=== PATIENT | male | born 1950 | race Caucasian/White ===

== ENCOUNTER 2018-06-06 12:04 | Observation (INO) ==
--- NOTE | 2018-06-06 12:12 | Emergency Department Note ---
Disposition Clinical Impression: Near syncope, Elevated troponin Disposition: Admitted As Inpatient Condition: Good Forms: ED Satisfaction Letter, Work/School Release General Adult HPI - General Chief complaint: ED General Medical Stated complaint: passed out Time Seen by Provider: 06/06/18 12:09 Source: patient Mode of arrival: ambulatory Limitations: no limitations Nursing Notes Reviewed: Yes Vital Signs Reviewed: Yes - History of Present Illness HPI Narrative: Patient was at a store and got unsteady on his feet fell and hit his head on the counter. He tells me he is to fall quite a bit and then over the last 6 months he has only following a couple times. He has no complaints at present. He denies any injury from the fall other than a little soreness in his forehead. 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 Radiation: non-radiation Pain Severity: mild Pain Scale: 1 Quality: aching Consistency: constant Improves with: nothing Worsens with: nothing Associated symptoms: Reports: denies other symptoms - Related Data Home Medications Medication Instructions Recorded Confirmed Amlodipine Besylate 10 mg PO DAILY 03/09/17 03/09/17 Aspirin 325 mg PO DAILY 03/09/17 03/09/17 Carvedilol 12.5 mg PO DAILY 03/09/17 03/09/17 Chlordiazepoxide [Librium] 25 mg PO HS 03/09/17 03/09/17 Clopidogrel [Plavix] 75 mg PO DAILY 03/09/17 03/09/17 Furosemide [Lasix] 20 mg PO BID 03/09/17 03/09/17 GlipiZIDE [Glipizide Xl] 5 mg PO DAILY 03/09/17 03/09/17 Lisinopril [Zestril] 20 mg PO DAILY 03/09/17 03/09/17 Metformin HCl [Glucophage] 1,000 mg PO TID 03/09/17 03/09/17 Mirtazapine [Remeron] 45 mg PO HS 03/09/17 03/09/17 Omeprazole [PriLOSEC] 40 mg PO DAILY 03/09/17 03/09/17 Pravastatin Sodium [Pravachol] 40 mg PO HS 03/09/17 03/09/17 Ziprasidone HCl [Geodon] 80 mg PO HS 03/09/17 03/09/17 traZODone [TraZODone] 100 mg PO HS 03/09/17 03/09/17 Albuterol Sulfate [Ventolin Hfa] 2 puff IH Q6H 06/06/18 Bethanechol Chloride [Urecholine] 10 mg PO TID 06/06/18 06/06/18 Chlordiazepoxide [Librium] 25 mg PO HS 06/06/18 06/06/18 Divalproex Sodium [Depakote] 500 mg PO BID 06/06/18 06/06/18 LevETIRAcetam [Keppra] 1,000 mg PO BID 06/06/18 06/06/18 Quetiapine Fumarate [Seroquel] 50 mg PO HS 06/06/18 06/06/18 Tamsulosin HCl [Flomax] 0.4 mg PO QAM 06/06/18 06/06/18 Allergies Allergy/AdvReac Type Severity Reaction Status Date / Time atorvastatin [From Lipitor] Allergy Hives Verified 03/09/17 15:41 hydrochlorothiazide Allergy Hives Verified 03/09/17 15:41 [From Dyazide] Triamterene [From Dyazide] Allergy Hives Verified 03/09/17 15:41 All systems ED: reviewed and negative except as stated. Review of Systems: As Per HPI Constitutional: Denies: fever, chills, weakness, weight change Eyes: Reports: as per HPI ENT ED: Denies: ear pain, throat pain, dental pain, hearing loss, epistaxis, congestion, dysphagia Cardiovascular: Denies: chest pain, palpitations, dyspnea on exertion, edema, syncope Respiratory: Reports: as per HPI Gastrointestinal: Reports: as per HPI Genitourinary: Denies: urgency, dysuria, frequency, hematuria Musculoskeletal: Denies: back pain, neck pain, arthralgia, myalgia Integumentary: Denies: rash, abrasion, lesions Neurological: Denies: headache, weakness, numbness, paresthesias, confusion, a bnormal gait, vertigo Psychiatric: Denies: anxiety, depression, suicidal thoughts, homicidal thoughts, auditory hallucinations, visual hallucinations Endocrine: Denies: fatigue Hematological/Lymphatic: Denies: easy bleeding, easy bruising Allergic/Immunologic: Denies: facial swelling, urticaria Past Medical History - Past Medical History Attestation: Yes The following information was validated with the patient. Source: patient, nursing notes reviewed Medical history: Reports: CHF, COPD, coronary artery disease, diabetes, GERD, hyperlipidemia, hypertension, myocardial infarction, other Psychiatric history: Reports: anxiety, depression, schizophrenia - Social History Smoking Status: Heavy tobacco smoker Smokeless Tobacco Status: No Alcohol use: Reports: none Drug use: Reports: none Physical Exam - General Limitations: no limitations General appearance: alert - Head Head exam: atraumatic, normocephalic, normal inspection - Eye Eye exam: Present: normal appearance, PERRL, EOMI - ENT ENT exam: normal exam, normal oropharynx, mucous membranes moist - Neck Neck exam: Present: normal inspection, full ROM, trachea midline - Chest Chest inspection: Present: normal inspection, symmetric chest wall rise - Respiratory Respiratory exam: Present: normal lung sounds bilaterally - Cardiovascular Cardiovascular exam: Present: regular rate, normal rhythm, normal heart sounds - Abdominal Exam Abdominal exam: Present: soft, Non-Tender, normal bowel sounds - Extremities Exam Extremities exam: Present: normal inspection, full ROM. Absent: tenderness, pedal edema - Back Exam Back exam: Present: normal inspection, full ROM. Absent: tenderness - Neurological Exam Neurological exam: Present: alert, oriented X3 - Psychiatric Psychiatric exam: Present: normal affect, normal mood - Skin Skin exam: Present: warm, dry, intact, normal color Course Vital Signs Temperature 97.8 F 06/06/18 12:07 Pulse Rate 86 06/06/18 12:07 Respiratory Rate 18 06/06/18 12:07 Blood Pressure 178/96 06/06/18 12:07 O2 Sat by Pulse Oximetry 95 06/06/18 12:07 Temperature 97.8 F 06/06/18 12:07 Pulse Rate 87 06/06/18 13:30 Respiratory Rate 17 06/06/18 13:30 Blood Pressure 163/80 06/06/18 13:30 O2 Sat by Pulse Oximetry 97 06/06/18 13:30 Oxygen Delivery Oxygen Delivery Room Air Medical Decision Making - MDM Narrative Medical decision making narrative: I reviewed the patient's medication list - Lab Data Lab results reviewed: Yes I reviewed the patient's lab results. Result diagrams: 06/06/18 12:26 06/06/18 12:26 Lab Results 06/06/18 06/06/18 06/06/18 Range/Units 12:16 12:26 12:26 WBC 6.8 (4.3-11.1) K/mcL RBC 5.29 (4.19-5.50) M/mcL Hgb 14.6 (12.9-16.9) g/dL Hct 44.4 (37.5-50.1) % MCV 83.9 (83.0-100.0) fL MCH 27.6 L (28.0-33.3) pg MCHC 32.9 (31.6-35.5) g/dL RDW 15.9 H (11.5-14.5) % Plt Count 223 (140-400) K/mcL MPV 10.8 (9.4-12.4) fL Immature Gran % 0.3 (0-4) % Seg Neutrophils % 69.5 % Lymphocytes % 16.6 % Monocytes % 9.2 % Eosinophils % 3.5 % Basophils % 0.9 % Neutrophils # 4.7 (1.6-8.9) K/mcL Lymphocytes # 1.1 (0.6-4.6) K/mcL Monocytes # 0.6 (0.0-1.3) K/mcL Eosinophils # 0.2 (0.0-0.6) K/mcL Basophils # 0.1 (0.0-0.2) K/mcL PT 11.4 (9.4-12.1) Seconds INR 1.0 APTT 29.8 (26.0-36.0) Seconds Sodium (136-145) mEq/L Potassium (3.5-5.1) mEq/L Chloride (98-107) mEq/L Carbon Dioxide (23-29) mEq/L BUN (8-23) mg/dL Creatinine (0.70-1.30) mg/dL Est GFR ( Amer) (> 60) Est GFR (Non-Af Amer) (> 60) BUN/Creatinine Ratio (6-26) Glucose (70-105) mg/dL Calculated Osmolality (280-300) Calcium (8.6-10.3) mg/dL Total Bilirubin (0.3-1.0) mg/dL AST (13-39) Units/L ALT (7-52) Units/L Alkaline Phosphatase (34-104) Units/L Troponin I (< 0.04) ng/mL Serum Total Protein (6.4-8.9) g/dL Albumin (3.5-5.7) g/dL Globulin (2.4-3.5) g/dL Albumin/Globulin Ratio (1.1-2.2) Urine Color Yellow (Yellow) Urine Clarity Clear (Clear) Urine pH 7.0 (5.0-8.0) pH Units Ur Specific [place] 1.020 (1.010-1.025) Urine Protein 100 H (Neg-Trace) mg/dL Urine Glucose (UA) Normal (Normal) mg/dL Urine Ketones Negative (Negative) mg/dL Urine Blood Trace-intact H (Negative) Urine Nitrite Negative (Negative) Urine Bilirubin Negative (Negative) Urine Urobilinogen Normal (Normal) mg/dL Ur Leukocyte Esterase Negative (Negative) Urine Microscopic RBC 0-3 (0-3) per hpf Urine Microscopic WBC 0-3 (0-3) per hpf Ur Squamous Epith Cells Few (None-Few) per lpf Urine Bacteria Few (None-Few) per hpf Ur Culture Indicated? NO (NO) 06/06/18 06/06/18 Range/Units 12:26 14:27 WBC (4.3-11.1) K/mcL RBC (4.19-5.50) M/mcL Hgb (12.9-16.9) g/dL Hct (37.5-50.1) % MCV (83.0-100.0) fL MCH (28.0-33.3) pg MCHC (31.6-35.5) g/dL RDW (11.5-14.5) % Plt Count (140-400) K/mcL MPV (9.4-12.4) fL Immature Gran % (0-4) % Seg Neutrophils % % Lymphocytes % % Monocytes % % Eosinophils % % Basophils % % Neutrophils # (1.6-8.9) K/mcL Lymphocytes # (0.6-4.6) K/mcL Monocytes # (0.0-1.3) K/mcL Eosinophils # (0.0-0.6) K/mcL Basophils # (0.0-0.2) K/mcL PT (9.4-12.1) Seconds INR APTT (26.0-36.0) Seconds Sodium 138 (136-145) mEq/L Potassium 4.1 (3.5-5.1) mEq/L Chloride 103 (98-107) mEq/L Carbon Dioxide 29 (23-29) mEq/L BUN 15 (8-23) mg/dL Creatinine 1.03 (0.70-1.30) mg/dL Est GFR ( Amer) > 60 (> 60) Est GFR (Non-Af Amer) > 60 (> 60) BUN/Creatinine Ratio 15 (6-26) Glucose 164 H (70-105) mg/dL Calculated Osmolality 290 (280-300) Calcium 9.6 (8.6-10.3) mg/dL Total Bilirubin 0.4 (0.3-1.0) mg/dL AST 31 (13-39) Units/L ALT 23 (7-52) Units/L Alkaline Phosphatase 63 (34-104) Units/L Troponin I 0.08 H* 0.09 H* (< 0.04) ng/mL Serum Total Protein 6.7 (6.4-8.9) g/dL Albumin 3.6 (3.5-5.7) g/dL Globulin 3.1 (2.4-3.5) g/dL Albumin/Globulin Ratio 1.2 (1.1-2.2) Urine Color (Yellow) Urine Clarity (Clear) Urine pH (5.0-8.0) pH Units Ur Specific [place] (1.010-1.025) Urine Protein (Neg-Trace) mg/dL Urine Glucose (UA) (Normal) mg/dL Urine Ketones (Negative) mg/dL Urine Blood (Negative) Urine Nitrite (Negative) Urine Bilirubin (Negative) Urine Urobilinogen (Normal) mg/dL Ur Leukocyte Esterase (Negative) Urine Microscopic RBC (0-3) per hpf Urine Microscopic WBC (0-3) per hpf Ur Squamous Epith Cells (None-Few) per lpf Urine Bacteria (None-Few) per hpf Ur Culture Indicated? (NO) - Radiology Data Radiology results reviewed: Yes I reviewed the patient's radiology results. - EKG Data EKG #1 EKG attestation: Yes I reviewed and interpreted this EKG. EKG results narrative: EKG shows a sinus rhythm with occasional PVC with rate of 80 bpm FL interval is 152ms. Worship 1 and 4 ms QTc interval 387 ms QTc interval 447 ms R axis - [address] elevation with nonspecific T changes noted
[2018-06-06 12:20] LABS: Bilirubin,Urine Negative (Negative); Blood,Urine Trace-intact (Negative); Clarity,Urine Clear (Clear); Color,Urine Yellow (Yellow); Glucose,Urine (UA) Normal (Normal); Ketones,Urine Negative (Negative); Leukocyte Esterase,Urine Negative (Negative); Nitrite,Urine Negative (Negative); Protein,Urine 100 mg/dL (Neg-Trace); Urobilinogen,Urine Normal (Normal)
[2018-06-06 12:29] LABS: Bacteria,Urine Few per hpf (None-Few); RBC,Urine 0-3 per hpf (0-3); Squamous Epithelial Cell,Urine Few per lpf (None-Few); WBC,Urine 0-3 per hpf (0-3)
[2018-06-06 12:32] LABS: Basophils # 0.1 K/mcL (0.0-0.2); Basophils % 0.9 %; Eosinophils # 0.2 K/mcL (0.0-0.6); Eosinophils % 3.5 %; Hematocrit 44.4 % (37.5-50.1); Hemoglobin 14.6 g/dL (12.9-16.9); Immature Granulocytes % 0.3 % (0-4); Lymphocytes # 1.1 K/mcL (0.6-4.6); Lymphocytes % 16.6 %; Mean Corpuscular HGB Conc 32.9 g/dL (31.6-35.5); Mean Corpuscular Hemoglobin 27.6 pg (28.0-33.3); Mean Corpuscular Volume 83.9 fL (83.0-100.0); Mean Platelet Volume 10.8 fL (9.4-12.4); Monocytes # 0.6 K/mcL (0.0-1.3); Monocytes % 9.2 %; Neutrophils # 4.7 K/mcL (1.6-8.9); Platelet Count 223 K/mcL (140-400); Red Blood Count 5.29 M/mcL (4.19-5.50); Red Cell Distribution Width 15.9 % (11.5-14.5); Segmented Neutrophils % 69.5 %
[2018-06-06 12:39] LABS: Prothrombin Time 11.4 Seconds (9.4-12.1)
[2018-06-06 12:42] LABS: Activated Partial Thrombo Time 29.8 Seconds (26.0-36.0)
[2018-06-06 12:51] LABS: Alanine Aminotransferase 23 Units/L (7-52); Albumin 3.6 g/dL (3.5-5.7); Albumin/Globulin Ratio 1.2 (1.1-2.2); Alkaline Phosphatase 63 Units/L (34-104); Aspartate Amino Transferase 31 Units/L (13-39); BUN/Creatinine Ratio 15 (6-26); Bilirubin,Total 0.4 mg/dL (0.3-1.0); Blood Urea Nitrogen 15 mg/dL (8-23); Calcium 9.6 mg/dL (8.6-10.3); Carbon Dioxide 29 mEq/L (23-29); Chloride 103 mEq/L (98-107); Globulin 3.1 g/dL (2.4-3.5); Glucose 164 mg/dL (70-105); Osmolality,Calculated 290 (280-300); Potassium 4.1 mEq/L (3.5-5.1); Sodium 138 mEq/L (136-145); Total Protein 6.7 g/dL (6.4-8.9); eGFR For Non-African Americans > 60 (> 60)
[2018-06-06 12:53] LABS: Troponin I 0.08 ng/mL (< 0.04)
[2018-06-06] MEDS ORDERED: Aspirin 81 MG TAB.CHEW PO STA (15:06)
--- NOTE | 2018-06-06 16:00 | Electrocardiograph Report ---
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
[2018-06-06] MEDS ORDERED: Naloxone 0.4 MG/ML INJ IVP PRN (18:21)
[2018-06-06] MEDS ORDERED: PRAVASTATIN 40MG PO SCH (21:00)
[2018-06-06] MEDS ORDERED: traZODone 50 MG TABLET PO SCH (21:00)
[2018-06-06] MEDS ORDERED: Ziprasidone 80 MG CAPSULE PO SCH (21:00)
[2018-06-06] MEDS ORDERED: Mirtazapine 15 MG TABLET PO SCH (21:00)
[2018-06-06] MEDS: *HR* Metformin 500 MG TABLET PO SCH (21:11)
[2018-06-07 07:17] LABS: Basophils % 0.6 %; Eosinophils # 0.4 K/mcL (0.0-0.6); Hematocrit 42.2 % (37.5-50.1); Hemoglobin 13.7 g/dL (12.9-16.9); Immature Granulocytes % 0.1 % (0-4); Lymphocytes % 14.1 %; Mean Corpuscular HGB Conc 32.5 g/dL (31.6-35.5); Mean Corpuscular Hemoglobin 27.7 pg (28.0-33.3); Mean Corpuscular Volume 85.3 fL (83.0-100.0); Mean Platelet Volume 10.2 fL (9.4-12.4); Monocytes # 0.7 K/mcL (0.0-1.3); Monocytes % 9.7 %; Neutrophils # 5.1 K/mcL (1.6-8.9); Platelet Count 212 K/mcL (140-400); Red Blood Count 4.95 M/mcL (4.19-5.50); Red Cell Distribution Width 16.3 % (11.5-14.5); Segmented Neutrophils % 70.5 %
[2018-06-07 07:40] LABS: BUN/Creatinine Ratio 12 (6-26); Blood Urea Nitrogen 15 mg/dL (8-23); Calcium 9.2 mg/dL (8.6-10.3); Carbon Dioxide 29 mEq/L (23-29); Chloride 105 mEq/L (98-107); Glucose 151 mg/dL (70-105); Osmolality,Calculated 290 (280-300); Potassium 4.1 mEq/L (3.5-5.1); Sodium 138 mEq/L (136-145); eGFR For Non-African Americans > 60 (> 60)
[2018-06-07] MEDS ORDERED: *HR* GlipiZIDE XL (24 HR) 2.5 MG TABLET PO SCH (08:00)
[2018-06-07] MEDS: *HR* Metformin 500 MG TABLET PO SCH (08:33)
[2018-06-07] MEDS ORDERED: Furosemide 20 MG TABLET PO SCH (09:00)
[2018-06-07] MEDS ORDERED: Lisinopril 20 MG TABLET PO SCH (09:00)
[2018-06-07] MEDS ORDERED: Aspirin 81 MG TAB.CHEW PO SCH (09:00)
[2018-06-07] MEDS ORDERED: amLODIPine 5 MG TABLET PO SCH (09:00)
[2018-06-07] MEDS ORDERED: ISOVUE-370 100 ML INFUS..BTL IVP ONE (09:03)
--- NOTE | 2018-06-07 09:19 | Internal Med History&Physical ---
Date of Encounter: 06/07/18 Time of Encounter: 08:40 Assessment and Plan (1) Near syncope Current visit: Yes Status: Acute Etiology undetermined. Orthostatic vital signs will be checked. Telemetry monitoring will be done. (2) Hypertension Current visit: Yes Status: Chronic Monitor blood pressure. Qualifiers: Hypertension type: essential hypertension Qualified Code(s): I10 - Essential (primary) hypertension (3) Weight loss Current visit: Yes Status: Acute TSH will be ordered. CT of chest will be done to further evaluate possible right hilar mass. (4) DM type 2 (diabetes mellitus, type 2) Current visit: Yes Status: Chronic Check hemoglobin A1c. Continue Glucophage and glipizide. Qualifiers: Diabetes mellitus long-term insulin use: without remote computer terminal operator use Diabetes mellitus complication status: without complication Qualified Code(s): E11.9 - Type 2 diabetes mellitus without complications (5) BPH (benign prostatic hyperplasia) Current visit: Yes Status: Chronic Continue Flomax Qualifiers: Lower urinary tract symptom presence: symptoms absent Qualified Code(s): N 40.0 - Benign prostatic hyperplasia without lower urinary tract symptoms (6) Hilar mass Current visit: Yes Status: Acute Chest x-ray shows right hilar fullness. Will order CT scan to further evaluate. Internal Medicine - H&P: HPI Chief complaint: Fall Admitted From: Emergency Dept Plans for Post Hospital Care: Home History of present illness: Mr. De La Rosa is a 67 year old male who was brought to emergency room after he had a near fall in a local store and hit his head on the counter. He denies loss of consciousness. He was evaluated in emergency room and was admitted to [facility] floor for ongoing care needs. He states he has had occasional falls at home. He denies syncopal episodes. Neurologic history is negative for documented strokes or seizures. Past Med Surg Social Fam HX - Past Medical History Medical history: CHF, COPD, coronary artery disease, diabetes, GERD, hyperlipidemia, hypertension, myocardial infarction, other Additional medical history: insomnia Psychiatric history: anxiety, depression, schizophrenia - Past Surgical History Additional surgical history: orif leg and jaw - Social History Smoking Status: Heavy tobacco smoker Smokeless Tobacco Status: No Alcohol use: none Drug use: none - Family History Father Adopted: Laie: Umer De La Rosa Family Member Ethnicity: Non- Living Status: Age at : 77 Hx Family Cardiac Disorders: No Hx Family Respiratory Disorders: No Hx Family Cancer: No Hx Family GI Disorders: No Hx Family Genitourinary Disorders: No Hx Family Endocrine Disorder: No Hx Family Musculoskeletal Disorders: No Hx Family Neuromuscular Disorders: No Hx Family Neurologic Disorders: No Hx Family HEENT Disorders: No Hx Family Autoimmune Disorders: No Hx Family Reproductive Disorders: No Hx Family Psychosocial Disorders: No Hx Family Medical Disorders: Yes (Father dies as a result of complications from gangrene) Internal Medicine - H&P: Meds Amlodipine Besylate 10 mg PO DAILY 03/09/17 [History] Aspirin 81 mg PO DAILY 03/09/17 [History] Carvedilol 12.5 mg PO BID 03/09/17 [History] Chlordiazepoxide [Librium] 25 mg PO HS 03/09/17 [History] Clopidogrel [Plavix] 75 mg PO DAILY 03/09/17 [History] Furosemide [Lasix] 20 mg PO QAM 03/09/17 [History] GlipiZIDE [Glipizide Xl] 5 mg PO DAILY 03/09/17 [History] Lisinopril [Zestril] 20 mg PO DAILY 03/09/17 [History] Metformin HCl [Glucophage] 500 mg PO BID 03/09/17 [History] Mirtazapine [Remeron] 30 mg PO HS 03/09/17 [History] Omeprazole [PriLOSEC] 40 mg PO DAILY 03/09/17 [History] Pravastatin Sodium [Pravachol] 40 mg PO HS 03/09/17 [History] Ziprasidone HCl [Geodon] 80 mg PO HS 03/09/17 [History] traZODone [TraZODone] 100 mg PO HS 03/09/17 [History] Albuterol Sulfate [Ventolin Hfa] 2 puff IH Q6H 06/06/18 [History] Bethanechol Chloride [Urecholine] 10 mg PO TID 06/06/18 [History] Chlordiazepoxide [Librium] 25 mg PO HS 06/06/18 [History] Divalproex Sodium [Depakote] 500 mg PO BID 06/06/18 [History] LevETIRAcetam [Keppra] 1,000 mg PO BID 06/06/18 [History] Quetiapine Fumarate [Seroquel] 50 mg PO HS 06/06/18 [History] Tamsulosin HCl [Flomax] 0.4 mg PO QAM 06/06/18 [History] Allergy/AdvReac Type Severity Reaction Status Date / Time atorvastatin [From Lipitor] Allergy Hives Verified 03/09/17 15:41 hydrochlorothiazide Allergy Hives Verified 03/09/17 15:41 [From Dyazide] Triamterene [From Dyazide] Allergy Hives Verified 03/09/17 15:41 All Systems PM: A 10-system review of systems was performed and is negative for pertinent findings except as documented above in the HPI. Review of systems: Gen.: He states his weight has decreased from approximately 240 pounds 2 years ago to present weight of approximately 215 pounds. He states this was unintentional. Cardiovascular: He has history of hypertension and states his heart has a "rhythm problem" but he does not know details. He reports he was told he had a "slight heart attack" in the past but is uncertain if he has had a stress test or heart catheter done. He denies known DVT or pulmonary embolus Respiratory: He has smoked since age 23 never exceeding 1 pack per day. He denies known chronic lung disease and does not use home oxygen GI: He denies disorders of his liver gallbladder or exocrine pancreas : He has BPH. He denies other kidney bladder prostate disorders Neurologic: As per history of present illness Endocrine: He was diagnosed with DM 2 approximately 2002. He has hyperlipidemia but denies thyroid disease Hematology/oncology: He denies known blood disorders cancers or anemia Psychiatric: He follows at mental health clinic but is uncertain of his diagnosis. [place] skeletal: He reports he had left leg fracture with repair and mandible fracture several years ago. He denies arthritis gout or other bone joint or muscle disorders. - Constitutional Vitals: Temp Pulse Resp BP Pulse Ox 98.2 F 86 16 163/93 96 06/07/18 08:02 06/07/18 08:02 06/07/18 08:02 06/07/18 08:02 06/07/18 08:02 Exam: Gen.: He is a well-developed well-nourished male lying in bed who appears in no acute distress HEENT: Head is atraumatic and normocephalic. Eyes: EOMI. There is no scleral icterus. Mouth: Mucosa is moist. Neck: Supple and nontender. There is no thyromegaly or adenopathy noted. Heart: Regular without murmurs gallops or ectopics Lungs: No wheezes or crackles are heard. Abdomen: Soft and nontender. No masses or guarding are noted. Extremities: He has trace pitting edema of the dorsal feet and lower legs bilaterally. There is wrinkling of the skin consistent with recent edema that has decreased. He has significant scaly desquamation of his skin. His feet are warm to touch. Dorsalis pedis and posterior tibial pulses are trace palpable bilaterally. Neurologic: Mental status: He is talkative and a good historian. He has a slight speech impediment. Cranial nerves: Smile is symmetric. Forehead wrinkles bilaterally. Tongue protrudes midline. EOMI. Motor: There is no pronator drift. Cerebellar: Finger to nose is intact bilaterally. Skin: Warm and dry Internal Med - H&P Results - Labs CBC & Chem 7: 06/07/18 07:13 06/07/18 07:13 Labs: Short CBC 06/06/18 06/07/18 Range/Units 12:26 07:13 WBC 6.8 7.2 (4.3-11.1) K/mcL Hgb 14.6 13.7 (12.9-16.9) g/dL Hct 44.4 42.2 (37.5-50.1) % Plt Count 223 212 (140-400) K/mcL Neutrophils # 4.7 5.1 (1.6-8.9) K/mcL BMP 06/06/18 06/07/18 12:26 07:13 Sodium 138 138 Potassium 4.1 4.1 Chloride 103 105 Carbon Dioxide 29 29 BUN 15 15 Creatinine 1.03 1.21 Glucose 164 H 151 H Calcium 9.6 9.2 Cardiac Enzymes 06/06/18 06/06/18 06/06/18 Range/Units 12:26 14:27 18:35 Troponin I 0.08 H* 0.09 H* 0.09 H* (< 0.04) ng/mL Liver Function 06/06/18 Range/Units 12:26 Total Bilirubin 0.4 (0.3-1.0) mg/dL AST 31 (13-39) Units/L ALT 23 (7-52) Units/L Alkaline Phosphatase 63 (34-104) Units/L Albumin 3.6 (3.5-5.7) g/dL Urine 06/06/18 Range/Units 12:16 Urine Color Yellow (Yellow) Urine Clarity Clear (Clear) Urine pH 7.0 (5.0-8.0) pH Units Ur Specific [place] 1.020 (1.010-1.025) Urine Protein 100 H (Neg-Trace) mg/dL Urine Glucose (UA) Normal (Normal) mg/dL - Impressions ITS Impressions Chest X-Ray 06/06/18 12:13 IMPRESSION: Right hilar opacity could represent pneumonia, among other etiologies. Recommend dedicated contrast-enhanced CT chest for further characterization. Cardiomegaly. D/ / Chris Mcfarland / Chris Mcfarland Interpreting Provider: Chris Mcfarland Head CT 06/06/18 12:13 IMPRESSION: No acute intracranial abnormality. Chronic small vessel disease. D/ / Yousif Rocha MD / Yousif Rocha MD Interpreting Provider: Yousif Rocha MD Chest X-Ray 06/07/18 07:00 IMPRESSION: Unchanged perihilar opacity in the right upper lobe which could represent pneumonia or a mass. CT would be helpful for further evaluation. D/ / Stas Tipton MD / Stas Tipton MD Interpreting Provider: Stas Tipton MD
[2018-06-07 09:58] VITALS: BP 140/82
--- NOTE | 2018-06-07 15:12 | Discharge Summary ---
Orders not resulted at time of discharge: Pending orders 06/07/18 07:12 Hgb A1C Routine Date of Encounter: 06/07/18 Time of Encounter: 14:50 - Discharge Diagnosis (1) Near syncope Priority: Primary Status: Acute (2) Hilar mass Priority: Secondary Status: Acute (3) Hypertension Priority: Secondary Status: Chronic Qualifiers: Hypertension type: essential hypertension Qualified Code(s): I10 - Essential (primary) hypertension (4) Weight loss Priority: Secondary Status: Acute (5) DM type 2 (diabetes mellitus, type 2) Priority: Secondary Status: Chronic Qualifiers: Diabetes mellitus remote computer terminal operator insulin use: without jail use Diabetes me llitus complication status: without complication Qualified Code(s): E11.9 - Type 2 diabetes mellitus without complications (6) BPH (benign prostatic hyperplasia) Priority: Secondary Status: Chronic Qualifiers: Lower urinary tract symptom presence: symptoms absent Qualified Code(s): N40.0 - Benign prostatic hyperplasia without lower urinary tract symptoms Hospital course: Mr. De La Rosa is a 67 year old male who was brought to emergency room after he had a near fall in a local store and hit his head on the counter. He denies loss of consciousness. He was evaluated in emergency room and was admitted to [facility] for ongoing care needs. Initial orders were written by the emergency room physician. I saw him on June 07 and performed a history and physical. He was placed on telemetry and remained stable. Repeat cardiac enzymes showed minimal change from admission. CT of chest was done to further evaluate right hilar fullness seen on chest x- ray. The chest CT showed right perihilar mass measuring 4.4 x 4.9 x 3.6 cm with invasion into the right hilum with narrowing of the right upper lobe bronchus. There were multiple necrotic right hilar lymph nodes. I discussed these findings with the patient and told him he needed to be transferred for further evaluation/treatment for lung cancer. He chose [facility]. Arrangements were complete for transfer the afternoon of June 07. - Time Spent with Patient Total time spent providing and/or coordinating discharge services: - Discharge Medications Home Medications: Amlodipine Besylate 10 mg PO DAILY 03/09/17 [History] Aspirin 81 mg PO DAILY 03/09/17 [History] Carvedilol 12.5 mg PO BID 03/09/17 [History] Chlordiazepoxide [Librium] 25 mg PO HS 10/28/17 [History] Clopidogrel [Plavix] 75 mg PO DAILY 03/09/17 [History] Furosemide [Lasix] 20 mg PO QAM 03/09/17 [History] GlipiZIDE [Glipizide Xl] 5 mg PO DAILY 03/09/17 [History] Lisinopril [Zestril] 20 mg PO DAILY 03/09/17 [History] Metformin HCl [Glucophage] 500 mg PO BID 03/09/17 [History] Mirtazapine [Remeron] 30 mg PO HS 03/09/17 [History] Omeprazole [PriLOSEC] 40 mg PO DAILY 03/09/17 [History] Pravastatin Sodium [Pravachol] 40 mg PO HS 03/09/17 [History] Ziprasidone HCl [Geodon] 80 mg PO HS 03/09/17 [History] traZODone [TraZODone] 100 mg PO HS 03/09/17 [History] Albuterol Sulfate [Ventolin Hfa] 2 puff IH Q6H 06/06/18 [History] Bethanechol Chloride [Urecholine] 10 mg PO TID 06/06/18 [History] Chlordiazepoxide [Librium] 25 mg PO HS 06/06/18 [History] Divalproex Sodium [Depakote] 500 mg PO BID 06/06/18 [History] LevETIRAcetam [Keppra] 1,000 mg PO BID 06/06/18 [History] Quetiapine Fumarate [Seroquel] 50 mg PO HS 06/06/18 [History] Tamsulosin HCl [Flomax] 0.4 mg PO QAM 06/06/18 [History] Allergies/Adverse Reactions: Allergy/AdvReac Type Severity Reaction Status Date / Time atorvastatin [From Lipitor] Allergy Hives Verified 03/09/17 15:41 hydrochlorothiazide Allergy Hives Verified 03/09/17 15:41 [From Dyazide] Triamterene [From Dyazide] Allergy Hives Verified 03/09/17 15:41 Date of admission: 06/06/18 15:13 Primary care physician: Leola Martinez Consults: 06/06/18 17:33 Consult to Elephant Keeper [CONS] Routine Reason for SW Consult: over 65 and lives alone - Constitutional Vitals: Temp Pulse Resp BP Pulse Ox 98.2 F 80 16 140/82 96 06/07/18 08:02 06/07/18 09:57 06/07/18 08:02 06/07/18 09:57 06/07/18 08:02 - Patient Status Disposition: Transfer Other Condition: Good - Discharge Instructions
[2018-06-07 20:51] LABS: Estimated Average Glucose 166 mg/dl; Hemoglobin A1C 7.4 %
[2018-06-08] MEDS ORDERED: amLODIPine 5 MG TABLET PO SCH (09:00)
== END 2018-06-07 16:14 | disposition other institution (70) ==
LOC: EMEROOPIK 12:04 → INPPIK 12:04
PROVIDERS: ADMIT Internal Medicine; ATTEND Internal Medicine

== ENCOUNTER 2018-06-27 10:16 | Observation (INO) ==
--- NOTE | 2018-06-27 10:23 | Emergency Department Note ---
Disposition Clinical Impression: Pedal edema Disposition: Admitted As Inpatient Condition: Good Referrals: NONE,PCP [Non-Partnered Physician] - Forms: ED Satisfaction Letter Time of Disposition: 11:50 Lower Extremity Injury HPI - General Chief Complaint: ED Extremity Injury, Lower Stated Complaint: left leg bleeding Time Seen by Provider: 06/27/18 10:21 Source: patient Mode of arrival: ambulatory Limitations: no limitations Nursing Notes Reviewed: Yes Vital Signs Reviewed: Yes - History of Present Illness HPI Narrative: 67-year-old gentleman who presents today with leg swelling and edema. He states he is having a lot of weeping from his legs. He self treated this at home with Dr. Crawford electrical tape over an old Cj bandage. This has been weeping generously. He also describes an episode 3 days ago where he scratched an area of his leg and bloodshot across the room. He states it bled for couple of days. He says that he was able to get that pretty much stopped after putting the duct tape and the electrical tape over top of it. He states that he has not had any shortness of breath or chest pain with it. He has had this edema since he had his heart attack a few years ago. He states it just gotten worse. He has been taking his Lasix. Patient is a heavy smoker - Related Data Home Medications Medication Instructions Recorded Confirmed Amlodipine Besylate 10 mg PO DAILY 03/09/17 06/27/18 Carvedilol 12.5 mg PO BID 03/09/17 06/27/18 Chlordiazepoxide [Librium] 25 mg PO HS 03/09/17 06/27/18 Furosemide [Lasix] 20 mg PO QAM 03/09/17 06/27/18 Lisinopril [Zestril] 20 mg PO DAILY 03/09/17 06/27/18 Metformin HCl [Glucophage] 500 mg PO BID 03/09/17 06/27/18 Mirtazapine [Remeron] 30 mg PO HS 03/09/17 06/27/18 Pravastatin Sodium [Pravachol] 40 mg PO HS 03/09/17 06/27/18 traZODone [TraZODone] 100 mg PO HS 03/09/17 06/27/18 Bethanechol Chloride [Urecholine] 10 mg PO TIDWM 06/06/18 06/27/18 Divalproex Sodium [Depakote] 500 mg PO BID 06/06/18 06/27/18 LevETIRAcetam [Keppra] 1,000 mg PO BID 06/06/18 06/27/18 Quetiapine Fumarate [Seroquel] 50 mg PO DAILY 06/06/18 06/27/18 Tamsulosin HCl [Flomax] 0.4 mg PO QPM 06/06/18 06/27/18 Aspirin 81 mg PO DAILY 06/09/18 06/27/18 Gentamicin Oint [Garamycin] 1 gm TP Q72H 06/09/18 06/27/18 Omeprazole [PriLOSEC] 40 mg PO DAILY 06/09/18 06/27/18 Albuterol Sulfate [Albuterol 2 puff IH Q6HR 06/17/18 06/27/18 Inhaler] Clopidogrel [Plavix] 75 mg PO DAILY 06/17/18 06/27/18 GlipiZIDE [Glipizide Xl] 5 mg PO DAILY 06/17/18 06/27/18 Ziprasidone HCl [Geodon] 80 mg PO HS 06/17/18 06/27/18 Allergies Allergy/AdvReac Type Severity Reaction Status Date / Time atorvastatin [From Lipitor] Allergy Hives Verified 06/17/18 16:23 hydrochlorothiazide Allergy Hives Verified 06/17/18 16:23 [From Dyazide] Triamterene [From Dyazide] Allergy Hives Verified 06/17/18 16:23 Review of Systems: All other systems are negative except as noted/marked Chart generated with voice recognition software Nursing notes reviewed Old records reviewed Past Medical History - Past Medical History Attestation: Yes The following information was validated with the patient. Source: patient, old records reviewed, nursing notes reviewed Medical history: Reports: CHF, COPD, coronary artery disease, diabetes, GERD, hyperlipidemia, hypertension, myocardial infarction, other Psychiatric history: Reports: anxiety, depression, schizophrenia - Social History Smoking Status: Current every day smoker Smokeless Tobacco Status: No Alcohol use: Reports: none Drug use: Reports: none Physical Exam General: NAD, VSS unkempt Head: normocephalic, atraumatic Eyes: EOMI, PERRLA mouth: dry mucous membranes Neck: NO CLA, Supple Chest wall: normal rise, no crepitus, no deformity noted Lungs: moving air well, no distress Heart: RRR Abd: soft, nontender, BS normal : deferred MSK: strength equal in all four extremities Ext: moves all four extremities, 3+ pedal edema bilaterally with weeping clear fluid from L leg, multiple sores Skin: cap refill normal, warm neuro : CN2-12 grossly intact, A&Ox3 Psych: normal affect, not anxious Course Course Narrative: On arrival removed his dressing on his foot. There is a lot of clear fluid d rainage but no signs of bleeding or and active infection. Patient is very unkempt. He was moved to the back and had his legs cleaned by the staff. Dressings were then applied to help with the oozing. Hopefully this will help prevent any superinfection from taking hold. I think the patient will benefit from some wound care and possibly Unna boots. I did a workup today to make sure that he was not an acute heart failure or having any other issues such as electrolyte abnormalities that could be causing his symptoms. The rest of his workup did not look too bad although he is anemic which is new for him. This is consistent with his story of bleeding heavily a few days ago from his leg. A gain is active bleeding now I think that this will recover. Patient had not had any runny bowel movements or anything like that. At this point he spoke with Dr. Giraldo to discuss admission and he was comfortable with that. Vital Signs Temperature 97.3 F L 06/27/18 10:18 Pulse Rate 92 06/27/18 10:18 Respiratory Rate 18 06/27/18 10:18 Blood Pressure 165/81 06/27/18 10:18 O2 Sat by Pulse Oximetry 99 06/27/18 10:18 Temperature 97.3 F L 06/27/18 10:18 Pulse Rate 92 06/27/18 10:18 Respiratory Rate 18 06/27/18 10:18 Blood Pressure 165/81 06/27/18 10:18 O2 Sat by Pulse Oximetry 99 06/27/18 10:18 Oxygen Delivery Oxygen Delivery Room Air Extremity Injury, Lower - MDM Narrative Medical decision making narrative: I spoke with Lester at Urgent Care, patient did have negative venous doppler at Urgent Care this morning prior to coming up here. however, he was unable to assess the distal lower leg secondary to the wrap on his leg. - Medical Records Medical records reviewed: Yes I reviewed the patient's medical records. - Lab Data Lab results reviewed: Yes I reviewed the patient's lab results. Result diagrams: 06/27/18 10:57 06/27/18 10:57 Lab Results 06/27/18 06/27/18 06/27/18 Range/Units 10:57 10:57 10:57 WBC 6.1 (4.3-11.1) K/mcL RBC 3.54 L (4.19-5.50) M/mcL Hgb 9.6 L (12.9-16.9) g/dL Hct 30.1 L (37.5-50.1) % MCV 85.0 (83.0-100.0) fL MCH 27.1 L (28.0-33.3) pg MCHC 31.9 (31.6-35.5) g/dL RDW 16.6 H (11.5-14.5) % Plt Count 231 (140-400) K/mcL MPV 10.2 (9.4-12.4) fL Immature Gran % 0.3 (0-4) % Seg Neutrophils % 62.7 % Lymphocytes % 19.1 % Monocytes % 13.6 % Eosinophils % 3.8 % Basophils % 0.5 % Neutrophils # 3.8 (1.6-8.9) K/mcL Lymphocytes # 1.2 (0.6-4.6) K/mcL Monocytes # 0.8 (0.0-1.3) K/mcL Eosinophils # 0.2 (0.0-0.6) K/mcL Basophils # 0.0 (0.0-0.2) K/mcL PT (9.4-12.1) Seconds INR APTT 27.1 (26.0-36.0) Seconds Sodium 140 (136-145) mEq/L Potassium 4.0 (3.5-5.1) mEq/L Chloride 105 (98-107) mEq/L Carbon Dioxide 29 (23-29) mEq/L BUN 16 (8-23) mg/dL Creatinine 0.98 (0.70-1.30) mg/dL Est GFR ( Amer) > 60 (> 60) Est GFR (Non-Af Amer) > 60 (> 60) BUN/Creatinine Ratio 16 (6-26) Glucose 124 H (70-105) mg/dL Calculated Osmolality 293 (280-300) Calcium 8.9 (8.6-10.3) mg/dL Magnesium 1.9 (1.6-2.6) mg/dL Total Bilirubin 0.4 (0.3-1.0) mg/dL Direct Bilirubin 0.1 (0.0-0.2) mg/dL Indirect Bilirubin 0.3 (0.0-1.2) mg/dL AST 16 (13-39) Units/L ALT 12 (7-52) Units/L Alkaline Phosphatase 47 (34-104) Units/L Troponin I (< 0.04) ng/mL B-Natriuretic Peptide (Less than 100) pg/mL Serum Total Protein 6.2 L (6.4-8.9) g/dL Albumin 3.4 L (3.5-5.7) g/dL Globulin 2.8 (2.4-3.5) g/dL Albumin/Globulin Ratio 1.2 (1.1-2.2) Salicylates (15.0-30.0) mg/dL 06/27/18 06/27/18 06/27/18 Range/Units 10:57 10:57 10:57 WBC (4.3-11.1) K/mcL RBC (4.19-5.50) M/mcL Hgb (12.9-16.9) g/dL Hct (37.5-50.1) % MCV (83.0-100.0) fL MCH (28.0-33.3) pg MCHC (31.6-35.5) g/dL RDW (11.5-14.5) % Plt Count (140-400) K/mcL MPV (9.4-12.4) fL Immature Gran % (0-4) % Seg Neutrophils % % Lymphocytes % % Monocytes % % Eosinophils % % Basophils % % Neutrophils # (1.6-8.9) K/mcL Lymphocytes # (0.6-4.6) K/mcL Monocytes # (0.0-1.3) K/mcL Eosinophils # (0.0-0.6) K/mcL Basophils # (0.0-0.2) K/mcL PT 11.9 (9.4-12.1) Seconds INR 1.1 APTT (26.0-36.0) Seconds Sodium (136-145) mEq/L Potassium (3.5-5.1) mEq/L Chloride (98-107) mEq/L Carbon Dioxide (23-29) mEq/L BUN (8-23) mg/dL Creatinine (0.70-1.30) mg/dL Est GFR ( Amer) (> 60) Est GFR (Non-Af Amer) (> 60) BUN/Creatinine Ratio (6-26) Glucose (70-105) mg/dL Calculated Osmolality (280-300) Calcium (8.6-10.3) mg/dL Magnesium (1.6-2.6) mg/dL Total Bilirubin (0.3-1.0) mg/dL Direct Bilirubin (0.0-0.2) mg/dL Indirect Bilirubin (0.0-1.2) mg/dL AST (13-39) Units/L ALT (7-52) Units/L Alkaline Phosphatase (34-104) Units/L Troponin I 0.03 (< 0.04) ng/mL B-Natriuretic Peptide 174 H (Less than 100) pg/mL Serum Total Protein (6.4-8.9) g/dL Albumin (3.5-5.7) g/dL Globulin (2.4-3.5) g/dL Albumin/Globulin Ratio (1.1-2.2) Salicylates < 2.5 L (15.0-30.0) mg/dL - Radiology Data Radiology results reviewed: Yes I reviewed the patient's radiology results. EXAMINATION: SINGLE XRAY VIEW OF THE CHEST 06/27/2018 11:19 am COMPARISON: Chest radiograph 06/07/2018. HISTORY: ORDERING SYSTEM PROVIDED HISTORY: pedal edema Initial evaluation of acute symptoms. FINDINGS: Patient's chin obscures lung apices. Normal heart size. Normal pulmonary vascularity. No focal consolidation. No evidence of pleural effusion or pneumothorax. XR/XR chest 1V portable IMPRESSION: No acute cardiopulmonary process. D/ / Mike Arnold MD / Mike Arnold MD Interpreting Provider: Mike Arnold MD - EKG Data EKG attestation: Yes I reviewed and interpreted this EKG. EKG results narrative: EKG interpreted by myself as a sinus rhythm with rate of 80 a QTC of [address] elevation he does have some flipped T waves in V6
[2018-06-27] MEDS ORDERED: Nicotine 21 MG PATCH.TD24 TD ONE (11:00)
[2018-06-27 11:05] LABS: Basophils % 0.5 %; Eosinophils # 0.2 K/mcL (0.0-0.6); Eosinophils % 3.8 %; Hematocrit 30.1 % (37.5-50.1); Hemoglobin 9.6 g/dL (12.9-16.9); Immature Granulocytes % 0.3 % (0-4); Lymphocytes # 1.2 K/mcL (0.6-4.6); Lymphocytes % 19.1 %; Mean Corpuscular HGB Conc 31.9 g/dL (31.6-35.5); Mean Corpuscular Hemoglobin 27.1 pg (28.0-33.3); Mean Platelet Volume 10.2 fL (9.4-12.4); Monocytes # 0.8 K/mcL (0.0-1.3); Monocytes % 13.6 %; Neutrophils # 3.8 K/mcL (1.6-8.9); Platelet Count 231 K/mcL (140-400); Red Blood Count 3.54 M/mcL (4.19-5.50); Red Cell Distribution Width 16.6 % (11.5-14.5); Segmented Neutrophils % 62.7 %
[2018-06-27 11:13] LABS: INR 1.1; Prothrombin Time 11.9 Seconds (9.4-12.1)
[2018-06-27 11:25] LABS: Salicylate < 2.5 mg/dL (15.0-30.0); Troponin I 0.03 ng/mL (< 0.04)
[2018-06-27 11:38] LABS: Alanine Aminotransferase 12 Units/L (7-52); Albumin 3.4 g/dL (3.5-5.7); Albumin/Globulin Ratio 1.2 (1.1-2.2); Alkaline Phosphatase 47 Units/L (34-104); Aspartate Amino Transferase 16 Units/L (13-39); BUN/Creatinine Ratio 16 (6-26); Bilirubin,Direct 0.1 mg/dL (0.0-0.2); Bilirubin,Indirect 0.3 mg/dL (0.0-1.2); Bilirubin,Total 0.4 mg/dL (0.3-1.0); Blood Urea Nitrogen 16 mg/dL (8-23); Calcium 8.9 mg/dL (8.6-10.3); Carbon Dioxide 29 mEq/L (23-29); Chloride 105 mEq/L (98-107); Globulin 2.8 g/dL (2.4-3.5); Glucose 124 mg/dL (70-105); Magnesium 1.9 mg/dL (1.6-2.6); Osmolality,Calculated 293 (280-300); Sodium 140 mEq/L (136-145); Total Protein 6.2 g/dL (6.4-8.9); eGFR For Non-African Americans > 60 (> 60)
[2018-06-27] MEDS ORDERED: Naloxone 0.4 MG/ML INJ IVP PRN (12:34)
[2018-06-27] MEDS ORDERED: Mag Hydrox/Al Hydrox/Simeth 30 ML UDC PO PRN (12:34)
[2018-06-27] MEDS ORDERED: MOM Conc 10 ML UD.LIQ PO PRN (12:34)
[2018-06-27] MEDS ORDERED: Ondansetron 4 MG/2 ML VIAL IVP PRN (12:34)
[2018-06-27] MEDS ORDERED: Acetaminophen 325 MG TABLET PO PRN (12:34)
[2018-06-27] MEDS ORDERED: Ketorolac 30 MG/ML VIAL IVP PRN (12:34)
[2018-06-27] MEDS: *HR* Metformin 500 MG TABLET PO SCH (17:50)
[2018-06-27] MEDS ORDERED: PRAVASTATIN 40MG PO SCH (21:00)
[2018-06-27] MEDS ORDERED: Ziprasidone 80 MG CAPSULE PO SCH (21:00)
[2018-06-27] MEDS ORDERED: traZODone 50 MG TABLET PO SCH (21:00)
[2018-06-27] MEDS ORDERED: Mirtazapine 15 MG TABLET PO SCH (21:00)
[2018-06-27] MEDS: levETIRAcetam 250 MG TABLET PO SCH (21:42)
[2018-06-27] MEDS: Divalproex (12 HR) 250 MG TABLET PO SCH (21:42)
[2018-06-28 06:02] LABS: Basophils % 0.5 %; Eosinophils # 0.2 K/mcL (0.0-0.6); Eosinophils % 5.2 %; Hematocrit 27.9 % (37.5-50.1); Hemoglobin 8.7 g/dL (12.9-16.9); Immature Granulocytes % 0.5 % (0-4); Lymphocytes # 1.2 K/mcL (0.6-4.6); Mean Corpuscular HGB Conc 31.2 g/dL (31.6-35.5); Mean Corpuscular Hemoglobin 27.2 pg (28.0-33.3); Mean Corpuscular Volume 87.2 fL (83.0-100.0); Mean Platelet Volume 10.9 fL (9.4-12.4); Monocytes # 0.7 K/mcL (0.0-1.3); Neutrophils # 2.1 K/mcL (1.6-8.9); Platelet Count 210 K/mcL (140-400); Red Cell Distribution Width 16.7 % (11.5-14.5); Segmented Neutrophils % 49.8 %
[2018-06-28 06:32] LABS: BUN/Creatinine Ratio 15 (6-26); Blood Urea Nitrogen 16 mg/dL (8-23); Calcium 8.6 mg/dL (8.6-10.3); Carbon Dioxide 32 mEq/L (23-29); Chloride 106 mEq/L (98-107); Glucose 108 mg/dL (70-105); Osmolality,Calculated 296 (280-300); Potassium 4.2 mEq/L (3.5-5.1); Sodium 142 mEq/L (136-145); eGFR For Non-African Americans > 60 (> 60)
[2018-06-28 06:42] VITALS: BP 145/73
[2018-06-28] MEDS ORDERED: *HR* GlipiZIDE XL (24 HR) 2.5 MG TABLET PO SCH (08:00)
[2018-06-28] MEDS ORDERED: Furosemide 20 MG TABLET PO SCH (09:00)
[2018-06-28] MEDS ORDERED: amLODIPine 5 MG TABLET PO SCH (09:00)
[2018-06-28] MEDS ORDERED: Lisinopril 20 MG TABLET PO SCH (09:00)
[2018-06-28] MEDS ORDERED: Aspirin 81 MG TAB.CHEW PO SCH (09:00)
--- NOTE | 2018-06-28 09:10 | Internal Med History&Physical ---
Date of Encounter: 06/28/18 Time of Encounter: 09:06 Assessment and Plan (1) Leg edema Current visit: Yes Status: Acute Improved with elevation and leg compression. No evidence of cellulitis. No evidence of CHF exacerbation. Pt to keep leg dressing with CLIVE wrap compression in place for two days before cleaning and the re-applying as directed. He will f/u with his PCP next week for further evaluation. Recommend wound care referral as outpatient if not improving. (2) Leg abrasion Current visit: Yes Status: Acute No further bleeding. No evidence of infection. Wound care as discussed. Qualifiers: Encounter type: initial encounter Laterality: left Qualified Code(s): S80.812A - Abrasion, left lower leg, initial encounter (3) Anemia Current visit: Yes Status: Acute Mild. Asymptomatic. Pt will f/u with PCP next week for work-up. Qualifiers: Anemia type: unspecified type Qualified Code(s): D64.9 - Anemia, unspecified (4) DM type 2 (diabetes mellitus, type 2) Current visit: No Status: Chronic Qualifiers: Diabetes mellitus assisted insulin use: without terminal block assembler use Diabetes mellitus complication status: without complication Qualified Code(s): E11.9 - Type 2 diabetes mellitus without complications (5) GERD (gastroesophageal reflux disease) Current visit: No Status: Chronic Qualifiers: Esophagitis presence: without esophagitis Qualified Code(s): K21.9 - Gastro-esophageal reflux disease without esophagitis (6) HLD (hyperlipidemia) Current visit: No Status: Acute Qualifiers: Qualified Code(s): E78.5 - Hyperlipidemia, unspecified (7) CHF (congestive heart failure) Current visit: No Status: Chronic Stable. No evidence of CHF exacerbation at this time. Qualifiers: Heart failure type: unspecified Qualified Code(s): I50.9 - Heart failure, unspecified Internal Medicine - H&P: HPI Chief complaint: Leg edema Admitted From: Home Plans for Post Hospital Care: Home History of present illness: Mr. De La Rosa is a 67 year old male that presented to ED with long standing history of leg edema followed by an abrasion to posterior left leg that resulted in considerable bleeding from leg. Pt denies weight gain, SOB, chest pain, palpitations, fevers or chills. Pt was evaluated in ED and had negative work-up outside of mild anemia. Legs were cleaned and dressings placed to both legs, which were then wrapped to help with edema. No evidence of infection. He was admitted for observation. He notes this morning that he feels well and insists upon going home. He denies any leg pain, pressure, drainage. He is ambulating independently and tolerating regular diet. There have been no issues overnight. Past Med Surg Social Fam HX - Past Medical History Medical history: CHF, COPD, coronary artery disease, diabetes, GERD, hyperlipidemia, hypertension, myocardial infarction, other Additional medical history: insomnia Psychiatric history: anxiety, depression, schizophrenia - Past Surgical History Additional surgical history: orif leg and jaw - Social History Smoking Status: Current every day smoker Smokeless Tobacco Status: No Alcohol use: none Drug use: none - Family History Father Adopted: No Family Member Ethnicity: Non- Living Status: Hx Family Cardiac Disorders: No Hx Family Respiratory Disorders: No Hx Family Cancer: No Hx Family GI Disorders: No Hx Family Endocrine Disorder: No Hx Family Neuromuscular Disorders: No Hx Family Neurologic Disorders: No Hx Family HEENT Disorders: No Hx Family Autoimmune Disorders: No Internal Medicine - H&P: Meds Amlodipine Besylate 10 mg PO DAILY 03/09/17 [History] Carvedilol 12.5 mg PO BID 03/09/17 [History] Chlordiazepoxide [Librium] 25 mg PO HS 03/09/17 [History] Furosemide [Lasix] 20 mg PO QAM 03/09/17 [History] Lisinopril [Zestril] 20 mg PO DAILY 03/09/17 [History] Metformin HCl [Glucophage] 500 mg PO BID 03/09/17 [History] Mirtazapine [Remeron] 30 mg PO HS 03/09/17 [History] Pravastatin Sodium [Pravachol] 40 mg PO HS 03/09/17 [History] traZODone [TraZODone] 100 mg PO HS 03/09/17 [History] Bethanechol Chloride [Urecholine] 10 mg PO TIDWM 06/06/18 [History] Divalproex Sodium [Depakote] 500 mg PO BID 06/06/18 [History] LevETIRAcetam [Keppra] 1,000 mg PO BID 06/06/18 [History] Quetiapine Fumarate [Seroquel] 50 mg PO DAILY 06/06/18 [History] Tamsulosin HCl [Flomax] 0.4 mg PO QPM 06/06/18 [History] Aspirin 81 mg PO DAILY 06/09/18 [History] Gentamicin Oint [Garamycin] 1 gm TP Q72H 06/09/18 [History] Omeprazole [PriLOSEC] 40 mg PO DAILY 06/09/18 [History] Albuterol Sulfate [Albuterol Inhaler] 2 puff IH Q6HR 06/17/18 [History] Clopidogrel [Plavix] 75 mg PO DAILY 06/17/18 [History] GlipiZIDE [Glipizide Xl] 5 mg PO DAILY 06/17/18 [History] Ziprasidone HCl [Geodon] 80 mg PO HS 06/17/18 [History] Allergy/AdvReac Type Severity Reaction Status Date / Time atorvastatin [From Lipitor] Allergy Hives Verified 06/17/18 16:23 hydrochlorothiazide Allergy Hives Verified 06/17/18 16:23 [From Dyazide] Triamterene [From Dyazide] Allergy Hives Verified 06/17/18 16:23 All Systems PM: A 10-system review of systems was performed and is negative for pertinent findings except as documented above in the HPI. - Constitutional Vitals: Temp Pulse Resp BP Pulse Ox 97.6 F 80 18 145/73 93 06/28/18 06:38 06/28/18 06:38 06/28/18 06:38 06/28/18 06:38 06/28/18 06:38 Exam: Gen: Lying in bed, NAD HEENT: NC, AT Neck: Trachea midline, no mass Pulm: No respiratory distress, CTAB CV: Normal S1 and S2, RRR Abdomen: Soft, ND, NT Ext: dressing with CLIVE wraps from feet to knees bilaterally clean, dry, intact, underlying skin without any erythema, edema trace to 1+ Neuro: No appreciable motor/sensor deficits Skin: Warm and dry Psych: A&Ox3 Internal Med - H&P Results - Labs CBC & Chem 7: 06/28/18 04:44 06/28/18 04:44 Labs: Short CBC 06/27/18 06/28/18 Range/Units 10:57 04:44 WBC 6.1 4.3 (4.3-11.1) K/mcL Hgb 9.6 L 8.7 L (12.9-16.9) g/dL Hct 30.1 L 27.9 L (37.5-50.1) % Plt Count 231 210 (140-400) K/mcL Neutrophils # 3.8 2.1 (1.6-8.9) K/mcL BMP 06/27/18 06/28/18 10:57 04:44 Sodium 140 142 Potassium 4.0 4.2 Chloride 105 106 Carbon Dioxide 29 32 H BUN 16 16 Creatinine 0.98 1.04 Glucose 124 H 108 H Calcium 8.9 8.6 Cardiac Enzymes 06/27/18 Range/Units 10:57 Troponin I 0.03 (< 0.04) ng/mL Liver Function 06/27/18 Range/Units 10:57 Total Bilirubin 0.4 (0.3-1.0) mg/dL Direct Bilirubin 0.1 (0.0-0.2) mg/dL AST 16 (13-39) Units/L ALT 12 (7-52) Units/L Alkaline Phosphatase 47 (34-104) Units/L Albumin 3.4 L (3.5-5.7) g/dL - Impressions ITS Impressions Chest X-Ray 06/27/18 10:40 IMPRESSION: No acute cardiopulmonary process. D/ / Mike Arnold MD / Mike Arnold MD Interpreting Provider: Mike Arnold MD
--- NOTE | 2018-06-28 09:23 | Discharge Summary ---
- NOTES TO OUTPATIENT PROVIDER Notes to Outpatient Provider: Recommend work-up of mild anemia. Outpatient wound care referral recommended if not improving. Orders not resulted at time of discharge: Pending orders 06/27/18 10:57 Culture,Blood [BC] Stat Date of Encounter: 06/28/18 Time of Encounter: 09:20 - Discharge Diagnosis (1) Leg edema Priority: Primary Status: Acute Comments: Improved with compression. No evidence of infection or CHF. Will continue supportive care with outpt management. (2) Leg abrasion Priority: Secondary Status: Acute Comments: Bleeding has resolved. No evidence of infection. Wound care as discussed. Qualifiers: Encounter type: initial encounter Laterality: left Qualified Code(s): S80.812A - Abrasion, left lower leg, initial encounter (3) Anemia Priority: Secondary Status: Acute Comments: Mild. Recommend outpatient work-up. Qualifiers: Anemia type: unspecified type Qualified Code(s): D64.9 - Anemia, unspecified (4) DM type 2 (diabetes mellitus, type 2) Priority: Secondary Status: Chronic Qualifiers: Diabetes mellitus terminal supervisor insulin use: without care home use Diabetes mellitus complication status: without complication Qualified Code(s): E11.9 - Type 2 diabetes mellitus without complications (5) GERD (gastroesophageal reflux disease) Priority: Secondary Status: Chronic Qualifiers: Esophagitis presence: without esophagitis Qualified Code(s): K21.9 - Gastro-esophageal reflux disease without esophagitis (6) HLD (hyperlipidemia) Priority: Secondary Status: Acute Qualifiers: Qualified Code(s): E78.5 - Hyperlipidemia, unspecified (7) CHF (congestive heart failure) Priority: Secondary Status: Chronic Qualifiers: Heart failure type: unspecified Qualified Code(s): I50.9 - Heart failure, unspecified Hospital course: Mr. De La Rosa is a 67 year old male that presented to ED with LLE abrasion with bleeding and weeping of both legs secondary to chronic leg edema. No evidence of infection or CHF. Labs revealed a mid to moderate anemia. Weeping, bleeding and edema improved with cleaning legs, application of dressing with compression and elevation. Pt did well overnight and without any issues. He was insistent upon discharge home. He notes that he will arrange PCP f/u next week for evaluation of anemia and ongoing management of leg edema. - Time Spent with Patient Total time spent providing and/or coordinating discharge services: Greater than 30 minutes - Discharge Medications Home Medications: RX: Amlodipine Besylate 10 mg PO DAILY 03/09/17 [History] RX: Carvedilol 12.5 mg PO BID 03/09/17 [History] RX: Chlordiazepoxide [Librium] 25 mg PO HS 03/09/17 [History] RX: Furosemide [Lasix] 20 mg PO QAM 03/09/17 [History] RX: Lisinopril [Zestril] 20 mg PO DAILY 03/09/17 [History] RX: Metformin HCl [Glucophage] 500 mg PO BID 03/09/17 [History] RX: Mirtazapine [Remeron] 30 mg PO HS 03/09/17 [History] RX: Pravastatin Sodium [Pravachol] 40 mg PO HS 03/09/17 [History] RX: traZODone [TraZODone] 100 mg PO HS 03/09/17 [History] RX: Bethanechol Chloride [Urecholine] 10 mg PO TIDWM 06/06/18 [History] RX: Divalproex Sodium [Depakote] 500 mg PO BID 06/06/18 [History] RX: LevETIRAcetam [Keppra] 1,000 mg PO BID 06/06/18 [History] RX: Quetiapine Fumarate [Seroquel] 50 mg PO DAILY 06/06/18 [History] RX: Tamsulosin HCl [Flomax] 0.4 mg PO QPM 06/06/18 [History] RX: Aspirin 81 mg PO DAILY 06/09/18 [History] RX: Gentamicin Oint [Garamycin] 1 gm TP Q72H 06/09/18 [History] RX: Omeprazole [PriLOSEC] 40 mg PO DAILY 06/09/18 [History] RX: Albuterol Sulfate [Albuterol Inhaler] 2 puff IH Q6HR 06/17/18 [History] RX: Clopidogrel [Plavix] 75 mg PO DAILY 06/17/18 [History] RX: GlipiZIDE [Glipizide Xl] 5 mg PO DAILY 06/17/18 [History] RX: Ziprasidone HCl [Geodon] 80 mg PO HS 06/17/18 [History] Allergies/Adverse Reactions: Allergy/AdvReac Type Severity Reaction Status Date / Time atorvastatin [From Lipitor] Allergy Hives Verified 06/17/18 16:23 hydrochlorothiazide Allergy Hives Verified 06/17/18 16:23 [From Dyazide] Triamterene [From Dyazide] Allergy Hives Verified 06/17/18 16:23 Date of admission: 06/27/18 12:12 Primary care physician: Leola Martinez Consults: None Discharging clinician: Stevie Dowd Anticipated date of discharge: 06/28/18 - Constitutional Vitals: Temp Pulse Resp BP Pulse Ox 97.6 F 80 18 145/73 87 06/28/18 06:38 06/28/18 06:38 06/28/18 09:14 06/28/18 06:38 06/28/18 09:14 Exam: see HPI examination - Patient Status Disposition: Home, Self-Care Condition: Fair Functional capacity at discharge: independent ambulation Overall status at discharge: patient is back to baseline - Discharge Instructions Instructions: Anemia (GEN) Follow Up With: Leola Martinez, DELIVERY DRIVER/SUPERVISOR [Primary Care Provider] - 1 week - Diet and Activity Activity: increase activity as tolerated Diet: advance to your usual diet
[2018-06-28] MEDS: Divalproex (12 HR) 250 MG TABLET PO SCH (09:26)
[2018-06-28] MEDS: *HR* Metformin 500 MG TABLET PO SCH (09:28)
[2018-06-28] MEDS: levETIRAcetam 250 MG TABLET PO SCH (09:35)
--- NOTE | 2018-06-28 21:43 | Electrocardiograph Report ---
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
== END 2018-06-28 11:38 | disposition home or self-care (01) ==
LOC: INPPIK 10:16 → EMEROOPIK 10:16 → INPPIK 12:32
PROVIDERS: ADMIT Internal Medicine; ATTEND Internal Medicine